=== PATIENT | male | born 1985 | race Caucasian/White ===

== ENCOUNTER 2016-12-04 11:51 | Emergency (ER) | payer OTHER ==
[2016-12-04 12:15] VITALS: RESP 18; TEMP 97.4
--- NOTE | 2016-12-04 13:36 | XR ---
EXAMINATION TYPE: XR chest 2V DATE OF EXAM: 12/04/2016 1:32 PM COMPARISON: 01/31/2010 HISTORY: 31-year-old male cough, congestion, and pain TECHNIQUE: Frontal and lateral views FINDINGS: Heart is upper limits of normal in size. Some strandy atelectasis at the right upper mid lung. No con solidation or pleural effusion. IMPRESSION: Heart at the upper limits of normal in size. No acute cardiopulmonary process.
--- NOTE | 2016-12-04 13:46 | ED ---
General Adult HPI - General Chief complaint: ENT Stated complaint: throat pain Time Seen by Provider: 12/04/16 13:05 Source: patient, RN notes reviewed Mode of arrival: ambulatory Limitations: no limitations - History of Present Illness Initial comments: This is a 31-year-old male presents with sinus congestion and sore throat 1 week. Patient also admits to a productive cough of yellow sputum. Patient denies any otalgia or headache or neck pain. Patient denies any tobacco, alcohol or drug use. Patient denies any sick contacts. Patient denies any recent fever, chills, shortness breath, chest pain, abdominal pain, nausea/ vomiting/diarrhea, back pain, numbness, tingling, hematuria, or visual changes , or any other complaints. - Related Data Home Medications Medication Instructions Recorded Confirmed DULoxetine HCL [Cymbalta] 60 mg PO BID 12/04/16 12/04/16 Ranitidine HCl [Zantac] 150 mg PO BID 12/04/16 12/04/16 clonazePAM [Clonazepam] 1 mg PO QAM 12/04/16 12/04/16 clonazePAM [Clonazepam] 2 mg PO HS 12/04/16 12/04/16 Previous Rx's Medication Instructions Recorded Azithromycin [Zithromax Z-pack] 250 mg PO DIRECTED #6 tab 12/04/16 Allergies Allergy/AdvReac Type Severity Reaction Status Date / Time sulfamethoxazole Allergy Rash/Hives Verified 12/04/16 13:29 [From Bactrim] trimethoprim [From Bactrim] Allergy Rash/Hives Verified 12/04/16 13:29 Review of Systems ROS Statement: Those systems with pertinent positive or pertinent negative responses have been documented in the HPI. ROS Other: All systems not noted in ROS Statement are negative. Past Medical History Past Medical History: No Reported History History of Any Multi-Drug Resistant Organisms: None Reported Past Surgical History: Tonsillectomy Past Psychological History: Anxiety, Depression Smoking Status: Never smoker Past Alcohol Use History: None Reported Past Drug Use History: None Reported General Exam - General Exam Comments Initial Comments: General: The patient is awake and alert, in no distress, and does not appear acutely ill. Eye: Pupils are equal, round and reactive to light, extra-ocular movements are intact. No nystagmus. There is normal conjunctiva bilaterally. No signs of icterus. Ears: TMs pink and pearly with intact cone of light bilaterally. Normal external ear canals. Nose: Turbinates slightly erythematous and edematous but clear of drainage. Discomfort with palpation of the maxillary or frontal sinuses. Mouth and throat: There is no erythema to the posterior pharynx, there are no exudates or tonsillar enlargement. There are moist mucous membranes and no oral lesions. Neck: The neck is supple, there is no tenderness or JVD. Cardiovascular: There is a regular rate and rhythm. No murmur, rub or gallop is appreciated. Respiratory: Lungs are clear to auscultation, respirations are non-labored, breath sounds are equal. No wheezes, stridor, rales, or rhonchi. Musculoskeletal: Normal ROM, no tenderness. Strength 5/5. Sensation intact. Radial pulses equal bilaterally 2+. Neurological: A&O x 3. CN II-XII intact, There are no obvious motor or sensory deficits. Coordination appears grossly intact. Speech is normal. Skin: Skin is warm and dry and no rashes or lesions are noted. Psychiatric: Cooperative, appropriate mood & affect, normal judgment. Limitations: no limitations Course Vital Signs 12/04/16 12/04/16 12:13 14:23 Temperature 97.4 F L Pulse Rate 111 H 97 Respiratory 18 18 Rate Blood Pressure 153/98 143/86 O2 Sat by Pulse 96 99 Oximetry Medical Decision Making - Medical Decision Making This is a 31-year-old male presents with sinus congestion and productive cough 1 week. On physical exam lungs are clear to auscultation bilaterally. There is mild erythema and edema to the nasal turbinates bilaterally. There is no discomfort with palpation of the maxillary or frontal sinuses. Patient is afebrile in the [facility] today. A chest x-ray was done and reviewed showing: Heart at the upper limits of normal in size. No acute cardiopulmonary process. Reported by Dr. Muir. Elevated pulse noted and the patient attributes this to feeling nervous in the hospital. Pulse and BP had decreased at time of discharge. Discussed the results with patient. Patient confirms again that he has no shortness of breath or chest pain today. Discussed with patient that he'll be put on a course of azithromycin for upper respiratory infection. Discussed return parameters. Discussed that patient should follow up with PCP in one to 2 days or return to the [facility] for any worsening symptoms or for any further concerns. Patient was receptive to this plan and patient will be discharged home. I discussed his case with attending physician Dr. Monroe who agrees the plan as stated above. Disposition Clinical Impression: Upper respiratory infection, Productive cough Disposition: HOME SELF-CARE Condition: Good Instructions: Upper Respiratory Infection (ED) Additional Instructions: Please finish entire course of antibiotics. Please use medication as discussed. Please follow-up with family doctor in the next 2 days of symptoms have not improved. Please return to emergency room if the symptoms increase or worsen or for any other concerns. Prescriptions: Azithromycin [Zithromax Z-pack] 250 mg PO DIRECTED #6 tab Referrals: None,Stated [Primary Care Provider] - 1-2 days Time of Disposition: 14:11
[2016-12-04 14:24] VITALS: BP 143/86; PULSE 97
== END 2016-12-04 14:29 | disposition home or self-care (01) ==
LOC: EC 11:51
DX: J06.9 Acute upper respiratory infection, unspecified (principal); F32.9 Major depressive disorder, single episode, unspecified; F41.9 Anxiety disorder, unspecified; Z88.2 Allergy status to sulfonamides; Z79.899 Other long term (current) drug therapy
CPT/HCPCS: 71020; 99283

== ENCOUNTER 2017-05-23 01:05 | Emergency (ER) | payer OTHER ==
[2017-05-23] MEDS ORDERED: GELATIN SPONGE,ABSORB (SMALL) 1 EACH SPONGE TOPICAL STA (01:32)
[2017-05-23] MEDS ORDERED: DIPH,PERTUS(ACELL)TETVAC-LF 0.5 ML VIAL IM ONE (01:32)
--- NOTE | 2017-05-23 01:53 | ED ---
Wound/Laceration HPI - General Chief Complaint: Wound/Laceration Stated Complaint: finger lac Time Seen by Provider: 05/23/17 01:26 Source: patient, RN notes reviewed Mode of arrival: ambulatory Limitations: no limitations - History of Present Illness Initial Comments: Patient is a 32-year-old male presents to the emergency room for evaluation of left thumb laceration. Patient states he was cleaning glasses and one of them broke and sliced his thumb. Patient has no numbness or tingling to his thumb. Patient states last tetanus vaccine was in 2000. Patient denies taking blood thinners. Patient denies any other injuries during incident. - Related Data Home Medications Medication Instructions Recorded Confirmed DULoxetine HCL [Cymbalta] 60 mg PO BID 12/04/16 05/23/17 Ranitidine HCl [Zantac] 150 mg PO BID 12/04/16 05/23/17 clonazePAM [Clonazepam] 1 mg PO QAM 12/04/16 05/23/17 clonazePAM [Clonazepam] 2 mg PO HS 12/04/16 05/23/17 Allergies Allergy/AdvReac Type Severity Reaction Status Date / Time sulfamethoxazole Allergy Rash/Hives Verified 12/04/16 13:29 [From Bactrim] trimethoprim [From Bactrim] Allergy Rash/Hives Verified 12/04/16 13:29 Review of Systems ROS Statement: Those systems with pertinent positive or pertinent negative responses have been documented in the HPI. ROS Other: All systems not noted in ROS Statement are negative. Past Medical History Past Medical History: No Reported History History of Any Multi-Drug Resistant Organisms: None Reported Past Surgical History: Tonsillectomy Past Psychological History: Anxiety, Depression Smoking Status: Never smoker Past Alcohol Use History: None Reported Past Drug Use History: None Reported General Exam - General Exam Comments Initial Comments: sitting in exam room, no distress. Limitations: no limitations General appearance: alert, in no apparent distress Head exam: Present: atraumatic, normocephalic, normal inspection Respiratory exam: Absent: respiratory distress Left Hand Wrist exam: Present: laceration (1 cm skin avulsion of left thumb on lateral nail bed with active bleeding). Absent: tenderness Vascular: Present: normal capillary refill (capillary refill less than 2 seconds.), radial pulse (2+), ulnar pulse (2+) Back exam: Present: normal inspection Neurological exam: Present: alert, oriented X3, CN II-XII intact, normal gait Psychiatric exam: Present: normal affect, normal mood Skin exam: Present: warm, dry. Absent: rash Course Vital Signs 05/23/17 05/23/17 01:18 02:11 Temperature 98.1 F 98.2 F Pulse Rate 96 98 Respiratory 18 20 Rate Blood Pressure 134/73 137/77 O2 Sat by Pulse 96 94 L Oximetry Medical Decision Making - Medical Decision Making Patient is a 32-year-old male presents to the emergency room for evaluation of thumb skin avulsion. Avulsion was irrigated and covered with Gelfoam. Patient was updated on his tetanus vaccine. Patient states he understands everything that was discussed with him. Return parameters discussed. Case discussed with Dr. Bell. Disposition Clinical Impression: Avulsion of skin of finger Disposition: HOME SELF-CARE Condition: Good Instructions: Skin Avulsion (ED) Additional Instructions: Tylenol or Motrin as needed for pain. Gelfoam fall off on its own in 24-48 hours. Please follow up with primary care provider in 1-2 days. If any new symptom arises or symptoms worsen, return to ER as soon as possible. Referrals: Loco Looney MD [Primary Care Provider] - 1-2 days Time of Disposition: 01:53
[2017-05-23 02:13] VITALS: BP 137/77; PULSE 98; RESP 20; TEMP 98.2
== END 2017-05-23 02:13 | disposition home or self-care (01) ==
LOC: EC 01:05
DX: S61.112A Laceration without foreign body of left thumb with damage to nail, initial encounter (principal); F32.9 Major depressive disorder, single episode, unspecified; F41.9 Anxiety disorder, unspecified; Z23 Encounter for immunization; Z79.899 Other long term (current) drug therapy; Z88.2 Allergy status to sulfonamides; W25.XXXA Contact with sharp glass, initial encounter; Y93.89 Activity, other specified
CPT/HCPCS: 90471; 90715; 99282